=== PATIENT | male | born 1950 | race Caucasian/White ===

== ENCOUNTER 2021-11-10 13:41 | Emergency (ER) | payer OTHER, SELFPAY ==
[2021-11-10 13:42] VITALS: BP 139/77; PULSE 89; RESP 16; TEMP 37.2; O2SAT 100; BMI 26.4
--- NOTE | 2021-11-10 14:08 | EDS_ITS ---
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 He is right-hand dominant. No numbness, loss of function, or other injury. In triage, nurse was removing the packing and there was blood sprain from the wound so she put a tight wrap around it with gauze controlling the bleeding with this. Tetanus Immunization: >10 years [facility] Medical History (Updated 11/10/21 @ 14:[address] Derek Puente MD) CAD (coronary artery disease) Hypertension Home Medications aspirin 81 mg PO DAILY@0800 12/25/16 [History Last Taken Unknown] clopidogrel 75 mg PO DAILY 12/25/16 [History Last Taken Unknown] insulin aspart U-100 [Novolog Flexpen (BKC)] units SUBCUT 12/25/16 [History Last Taken Unknown] magnesium oxide 420 mg PO DAILY 12/25/16 [History Last Taken Unknown] metoprolol tartrate 25 mg PO BID 12/25/16 [History Last Taken Unknown] nitroglycerin 0.4 mg SUBLINGUAL Q5M PRN 12/25/16 [History Last Taken Unknown] prazosin [Minipress] 2 mg PO DAILY 12/25/16 [History Last Taken Unknown] prazosin [Minipress] 2 mg PO QHS 12/25/16 [History Last Taken Unknown] venlafaxine 75 mg PO TID 12/25/16 [History Last Taken Unknown] cephalexin 500 mg PO TID #15 capsule 11/10/21 [Rx Last Taken Unknown] Allergy/AdvReac Type Severity Reaction Status Date / Time No Known Allergies Allergy Verified 11/10/21 13:45 Social History Smoking Status: Never smoker ROS ROS ED Constitutional Constitutional ED: Denies chills or fever(s) Musculoskeletal Musculoskeletal: Reports extremity pain; Denies neck pain Integumentary Reports wounds; Denies Abrasions or rash Neurologic Neurologic: Denies paresthesias or weakness EXAM Physical Exam Const Vital Signs: 11/10/21 13:42 Temperature 98.9 F Temperature Source Temporal Pulse Rate 89 Respiratory Rate 16 Blood Pressure 139/77 H Blood Pressure Mean 97 Pulse Ox 100 Oxygen Delivery Method Room Air Positive well nourished and well developed General Appearance ED: well developed and NAD Neck full ROM and supple Back/Spine normal ROM and normal to inspection Extremity Extremity Narrative: Mild tenderness at area of soft tissue injury left dorsal forearm, full range of motion of the elbow, wrist, fingers, with all extensor tendon function intact clinically. Neuro oriented x3, no focal motor deficits and no sensory deficits noted Sensorium / Orientation: alert Psych mental status grossly normal and thought process normal Skin Skin Narrative: Irregular clean appearing wound dorsal left mid-distal forearm, mostly superficial skin tear but there is an area of laceration where the heavy bleeding was coming from but is only very mild when I remove the dressing and wrapping now; laceration approximately 4 cm and full-thickness. Within the skin tear more proximally in the forearm, there is a partial-thickness 0.5 centimeter laceration as well. Rashes: no rashes MDM MDM MDM Narrative Medical decision making narrative: We updated the patient's tetanus, cleansed the laceration/skin tear thoroughly, excising about 2 cm? of epidermis that was hanging off in the way of repairing the lacerations. See the procedure note. The most of it was skin tear, that will have to heal in with granulation. Discussed dressing with nonstick materials and ointment, I will place him on 5 days of prophylactic cephalexin since it was dirty in this area and the laceration penetrated deep into tissue. Procedures Lacerations left forearm - distal: Length: 4 cm Depth: Fascia Shape: Flap Prep: Sterile Conditions and Chlorhexadine Laceration repair: Irrigated, Lidocaine with epi (4cc, 1%) and Local Number of Sutures/Nina: 6 Suture Information: Ethilon, Simple and 4-0 left forearm - proximal: Length: 0.5 cm Depth: Skin Shape: Linear Prep: Sterile Conditions and Chlorhexadine Laceration repair: Lidocaine with epi (0.5cc, 1%) Number of Sutures/Nina: 1 Suture Information: Ethilon, Simple and 4-0 Discharge Plan Triage Chief Complaint: Laceration ED Provider: Derek Puente Dx/Rx/DC Orders Clinical Impression: Laceration of forearm, left, Skin tear of left forearm without complication, Immunization, tetanus-diphtheria Instructions: ED Laceration: All Closures, ED Skin Avulsion Prescriptions: New cephalexin [cephalexin] 500 MG capsule 500 mg PO TID Qty: 15 RF: 0 No Action venlafaxine 75 MG tablet 75 mg PO TID RF: 0 magnesium oxide 420 MG tablet 420 mg PO DAILY RF: 0 clopidogrel 75 MG tablet 75 mg PO DAILY RF: 0 aspirin 81 MG tablet 81 mg PO DAILY@0800 RF: 0 nitroglycerin 0.4 MG tablet 0.4 mg sublingual Q5M PRN (Reason: Chest Pain) RF: 0 prazosin [Minipress] 2 MG capsule 2 mg PO DAILY RF: 0 prazosin [Minipress] 2 MG capsule 2 mg PO QHS RF: 0 insulin aspart U-100 [Novolog Flexpen U-100 Insulin] 100 UNITS/ML insulin pen subcut RF: 0 metoprolol tartrate 25 MG tablet 25 mg PO BID RF: 0 Primary Care Provider: [facility] Referrals: Town Doctor,Out of [NON-STAFF] - 10-14 Days suture removal (or ER (or urgent care -- if you dare!)) Disposition Disposition: Home, Self Care
[2021-11-10] MEDS: Diphth,Pertuss(Acell),Tet Vac 0.5 ML Vial IM (14:19)
[2021-11-10] MEDS: Lidocaine 1% /Epi 1:100 (20ml) 20 ML Vial INFILT (14:20)
[2021-11-10] MEDS: Cephalexin 250 MG Capsule 500 MG PO (15:55)
== END 2021-11-10 16:12 | disposition home or self-care (01) ==
PROVIDERS: Emergency Provider Emergency Medicine; Visit Provider Emergency Medicine
DX: S51.812A Laceration without foreign body of left forearm, initial encounter (principal); I25.10 Atherosclerotic heart disease of native coronary artery without angina pectoris; I10 Essential (primary) hypertension; W26.8XXA Contact with other sharp object(s), not elsewhere classified, initial encounter; Y93.H9 Activity, other involving exterior property and land maintenance, building and construction; Y99.9 Unspecified external cause status; Y92.79 Other farm location as the place of occurrence of the external cause; Z79.899 Other long term (current) drug therapy; Z79.82 Long term (current) use of aspirin; Z79.02 Long term (current) use of antithrombotics/antiplatelets; Z23 Encounter for immunization
CPT/HCPCS: 12002; 90715; 99283

== ENCOUNTER → 2024-01-01 | Day surgery (SDC) | payer MEDICARE, SELFPAY ==
--- NOTE | 2024-01-01 13:30 | EKG12_ITS ---
Test Reason : PREOP Blood Pressure : / mmHG Vent. Rate : 085 BPM Atrial Rate : 085 BPM P-R Int : 136 ms QRS Dur : 142 ms QT Int : 412 ms P-R-T Axes : 069 102 072 degrees QTc Int : 490 ms Normal sinus rhythm Right bundle branch block Abnormal ECG Confirmed by MORGAN ALEX, MORGAN ([id number]), restaurant expeditor DEJA HASSAN ([id number]) on 01/02/2024 6:33:00 AM Referred By: Morales Chun Confirmed By:MORGAN MORA MD
[2024-01-01 14:58] LABS: Hematocrit 39.6 % (40-54); Hemoglobin 13.3 g/dL (13.0-16.5); Mean Corp Hgb Conc 33.6 g/dL (32-36); Mean Corpuscular Hgb 29.8 pg (27.0-32.0); Mean Corpuscular Volume 88.8 fL (80-94); Mean Platelet Vol. 10.8 fl (6.2-12.0); Platelet Count 201 K/mm3 (150-450); RBC Distribution Width CV 12.7 % (11.6-14.6); RBC Distribution Width SD 41.4 fl (35.1-43.9); Red Blood Count 4.46 M/mm3 (4.6-6.2); White Blood Count 7.7 K/mm3 (4.4-11.0)
[2024-01-01 15:23] LABS: Anion Gap 7 (5-15); BUN 16 mg/dL (7-18); BUN/Creat Ratio 14.4 RATIO (10-20); Calcium,Total 9.3 mg/dL (8.5-10.1); Chloride 110 mmol/L (98-107); Creatinine, Serum 1.11 mg/dL (0.70-1.30); EST Glomerular Filtration Rate 69 mL/min (>60); Est Glom Filt Rate - Afr Amer 83 mL/min (>60); Glucose 99 mg/dL (74-106); Potassium 3.7 mmol/L (3.5-5.1); Sodium Level 142 mmol/L (136-145)
[2024-01-01 15:32] LABS: Hemoglobin A1c 7.3 % (3.8-5.6)
== END | disposition home or self-care (01) ==
LOC: SDC 13:25
PROVIDERS: Anesthesiology; Referring Provider Urology; Visit Provider Urology
DX: Z01.818 Encounter for other preprocedural examination (principal); Z79.899 Other long term (current) drug therapy
CPT/HCPCS: 36415; 80048; 83036; 85027; 93005; J2405

== ENCOUNTER 2024-01-09 13:22 | Observation (INO) | payer MEDICARE, SELFPAY ==
[2024-01-09] VITALS (13 sets, daily range): BP systolic 141–173; BP diastolic 67–122; PULSE 55–67; RESP 13–18; TEMP 36.1–36.7; O2SAT 93–100; BMI 27.8
[2024-01-09] MEDS: Lactated Ringers 1,000 ML 15 ML IV ×2 (11:33→15:10)
[2024-01-09] MEDS: Dextrose 5%-Lactated Ringers 1,000 ML 15 ML IV (11:45)
--- NOTE | 2024-01-09 12:40 | PCM.PRE.AN2 ---
ASA Classification* ASA Classification ASA Classification: 3 Assessment & Plan Anesthesia* Anesthesia Assessment Anesthesia Assessment: Discussed sedation and/or anesthesia options, risks, benefits, and alternatives with patient/parents/legal guardian/POA. Questions invited. The patient/parents/legal guardian/POA seems to understand and agrees to proceed with anesthesia plan. Reviewed the physical assessment, medical history, allergy history and patient home medications list prior to surgery/procedure/anesthetic and documented any changes. Performed airway and anesthesia risk assessments. Anesthesia Type Anesthesia Type: General (Patient will have to be intubated with glide scope.) History Source History Obtained from:: Patient and Chart Anesthesia Focused Assessment* Temperature: 97.2 F Pulse Rate: 56 Blood Pressure: 141/73 Respiratory Rate: 16 Pulse Ox: 100 Oxygen Delivery Method: Room Air Airway Assessment Mouth opens: >3 cm Mallampati Score: IV Teeth Condition: Caps/Crowns (Several Crowns. All Tight) Neck Range of motion (ROM): Limited ROM (Significantly decreased extension) Pertinent Findings EKG Pertinent Findings:: January 01, 2024. Normal sinus rhythm. Right bundle branch block. ECHO Pertinent Findings:: March 21, 2023. Ejection fraction is 40 to 45%. Consults Pertinent Findings:: March 21, 2023. No acute cardiopulmonary processes. 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 When Was Last Pacemaker Check QUESTION #4 FULL TEXT: You/Your Family Experience fever (hyperthermia) with Anesthesia Last Oral Intake Last Oral intake: Last Oral Intake NPO since 22:00 01/09/24 11:23 Meds taken in AM with sips of water? Meds patient instructed to take am of surgery Any additional information?: Yes NPO since: 08:30 Meds patient instructed to take am of surgery: Black coffee at 8:30 AM. 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 Has anyone observed you stop No 12/31/23 08:51 breathing during sleep? STOP Results Positive 12/31/23 08:51 QUESTION #5 FULL TEXT : Do you snore loudly (louder than talking or can be heard through closed doors)? 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 Specify any problems Hx of Preganancy in last 3 N/A 12/31/23 08:51 Months Nurse Filling Out Transfusion DSCHRIBER 12/31/23 08:51 & Questions: Date: 12/31/23 12/31/23 08:51 Time: 08:52 12/31/23 08:51 Patient unable to answer at this time (ie. 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 driver Hx Now No 12/31/23 08:51 Gestational Age (in weeks): EDC: Hx Hx Para Hx Section SAB No 12/31/23 08:51 Active Medications Active Medications: Current Medications Generic Name Dose Route Start Last Admin Trade Name Freq PRN Reason Stop Dose Admin Dextrose/Lactated Ringer's 1,000 mls @ 15 mls/hr 01/09/24 11:45 01/09/24 11:45 IV 15 mls/hr .Q48H AMEYA Administration PFSH Medical History Loss of hearing Wears glasses PTSD (post-traumatic stress disorder) Depression Anxiety Alcohol use Insulin dependent diabetes mellitus Prostate disease Anemia Restless legs High cholesterol TIA (transient ischemic attack) Dietary restriction History of hiatal hernia Gastric reflux Former smoker Leg cramps History of echocardiogram History of stress test Cardiology follow-up encounter History of heart attack CAD (coronary artery disease) Hypertension Home Medications ?Medication ?Instructions ?Recorded ?Last Taken ?Type aspirin 81 mg tablet,delayed 81 mg PO DAILY@0800 12/25/16 12/31/23 History release magnesium oxide 420 mg tablet 420 mg PO QHS 12/25/16 01/08/24 History nitroglycerin 0.4 mg sublingual 0.4 mg sublingual Q5M PRN Chest 12/25/16 Unknown History tablet Pain prazosin 2 mg capsule (Minipress) 1 mg PO QHS 12/25/16 01/08/24 History alogliptin 25 mg tablet 25 mg PO DAILY 12/31/23 01/08/24 History atorvastatin 40 mg tablet 40 mg PO QHS 12/31/23 01/08/24 History cholecalciferol (vitamin D3) 50 50 mcg PO DAILY 12/31/23 01/08/24 History mcg (2,000 unit) capsule cyanocobalamin (vitamin B-12) 500 500 mcg PO DAILY 12/31/23 01/09/24 History mcg tablet finasteride 5 mg tablet 5 mg PO DAILY 12/31/23 01/09/24 History insulin glargine 100 unit/mL (3 54 unit subcut DAILY 12/31/23 01/08/24 History mL) subcutaneous pen (Basaglar KwikPen U-100 Insulin) metformin 1,000 mg tablet 1,000 mg PO BID 12/31/23 01/09/24 History metoprolol succinate 25 mg 12.5 mg PO QHS 12/31/23 01/08/24 History tablet,extended release 24 hr pantoprazole 20 mg tablet,delayed 20 mg PO DAILY 12/31/23 01/09/24 History release tamsulosin 0.4 mg capsule 0.4 mg PO QHS 12/31/23 01/08/24 History Allergy/AdvReac Type Severity Reaction Status Date / Time No Known Allergies Allergy Verified 01/09/24 11:19 Surgical History History of cardiac catheterization Hx of heart bypass surgery History of coronary artery stent placement History of adrenal surgery Social History Smoking Status: Former smoker Review of Systems (Anesthesia) ROS Narrative System reviewed and no additional complaints, except as documented.
[2024-01-09 13:02] LABS: Bedside Glucose 76 mg/dL (74-106)
--- NOTE | 2024-01-09 13:02 | PCM.HP.STD ---
HPI - General General Date of Service: 01/09/24 HPI Narrative BALBIR DIAZ, is a 73 M who presents for transurethral resection of the prostate for obstruction organ to proceed with a TURP. [facility] Medical History Loss of hearing Wears glasses PTSD (post-traumatic stress disorder) Depression Anxiety Alcohol use Insulin dependent diabetes mellitus Prostate disease Anemia Restless legs High cholesterol TIA (transient ischemic attack) Dietary restriction History of hiatal hernia Gastric reflux Former smoker Leg cramps History of echocardiogram History of stress test Cardiology follow-up encounter History of heart attack CAD (coronary artery disease) Hypertension Home Medications ?Medication ?Instructions ?Recorded ?Last Taken ?Type aspirin 81 mg tablet,delayed 81 mg PO DAILY@0800 12/25/16 12/31/23 History release magnesium oxide 420 mg tablet 420 mg PO QHS 12/25/16 01/08/24 History nitroglycerin 0.4 mg sublingual 0.4 mg sublingual Q5M PRN Chest 12/25/16 Unknown History tablet Pain prazosin 2 mg capsule (Minipress) 1 mg PO QHS 12/25/16 01/08/24 History alogliptin 25 mg tablet 25 mg PO DAILY 12/31/23 01/08/24 History atorvastatin 40 mg tablet 40 mg PO QHS 12/31/23 01/08/24 History cholecalciferol (vitamin D3) 50 50 mcg PO DAILY 12/31/23 01/08/24 History mcg (2,000 unit) capsule cyanocobalamin (vitamin B-12) 500 500 mcg PO DAILY 12/31/23 01/09/24 History mcg tablet finasteride 5 mg tablet 5 mg PO DAILY 12/31/23 01/09/24 History insulin glargine 100 unit/mL (3 54 unit subcut DAILY 12/31/23 01/08/24 History mL) subcutaneous pen (Basaglar PatiPen U-100 Insulin) metformin 1,000 mg tablet 1,000 mg PO BID 12/31/23 01/09/24 History metoprolol succinate 25 mg 12.5 mg PO QHS 12/31/23 01/08/24 History tablet,extended release 24 hr pantoprazole 20 mg tablet,delayed 20 mg PO DAILY 12/31/23 01/09/24 History release tamsulosin 0.4 mg capsule 0.4 mg PO QHS 12/31/23 01/08/24 History Allergy/AdvReac Type Severity Reaction Status Date / Time No Known Allergies Allergy Verified 01/09/24 11:19 Surgical History History of cardiac catheterization Hx of heart bypass surgery History of coronary artery stent placement History of adrenal surgery Social History Smoking Status: Former smoker Vital Signs Vital Signs Vital Signs: 01/09/24 11:23 01/09/24 12:48 Temperature 97.2 F L 97.2 F L Temperature Source Temporal Pulse Rate 56 L 56 L Respiratory Rate 16 16 Blood Pressure 141/73 H 141/73 H Blood Pressure Mean 95 Blood Pressure Source Monitor Blood Pressure Position Semi-Fowlers Blood Pressure Location Left Arm Pulse Ox 100 100 Oxygen Delivery Method Room Air Room Air Weight Weight: 93 kg Body Mass Index (BMI) 27.8 Results Lab / Micro Data Labs: Laboratory Results - last 24 hr 01/09/24 11:25: POC Glucose 76
--- NOTE | 2024-01-09 13:26 | DCINST_ITS ---
Discharge Instructions Diet Discharge Diet: No restrictions Activity Discharge Activity: Return to Normal Activity and May Not Drive (while taking narcotic pain medications.) Dressing / Incision Call your doctor if you observe: Fever of 101 or Higher Follow Up Care Please Follow Up With: Morales Chun MD When: Call [phone] for an appointment Test Results: Test results from this visit will be discussed in further detail at your follow- up appointment, if applicable. Discharge Plan Admission Primary Reason for Your Visit: RODERICK Attending Provider: Morales Chun Primary Care Provider: [facility] Instructions Patient Instructions: YVES, RODERICK Home Recovery, [facility] Hospital Recovery Print Language: Bengali Discharge Orders/Prescriptions Prescriptions: New ciprofloxacin HCl [Cipro] 500 mg tablet 500 mg PO BID Qty: 14 0RF Continued magnesium oxide 420 MG tablet 420 mg PO QHS nitroglycerin 0.4 MG tablet 0.4 mg sublingual Q5M PRN (Reason: Chest Pain) prazosin [Minipress] 2 MG capsule 1 mg PO QHS pantoprazole 20 mg tablet,delayed release (DR/EC) 20 mg PO DAILY cyanocobalamin (vitamin B-12) 500 mcg tablet 500 mcg PO DAILY alogliptin 25 mg tablet 25 mg PO DAILY cholecalciferol (vitamin D3) 50 mcg (2,000 unit) capsule 50 mcg PO DAILY metformin 1,000 mg tablet 1,000 mg PO BID metoprolol succinate 25 mg tablet extended release 24 hr 12.5 mg PO QHS atorvastatin 40 mg tablet 40 mg PO QHS insulin glargine [Basaglar KwikPen U-100 Insulin] 100 unit/mL (3 mL) insulin pen 54 unit subcut DAILY Discontinued aspirin 81 MG tablet 81 mg PO DAILY@0800 finasteride 5 mg tablet 5 mg PO DAILY tamsulosin 0.4 mg capsule 0.4 mg PO QHS Referrals / Follow Up: Morales Chun MD [Med Staff - Active Staff] - [facility] [Primary Care Provider] - Disposition Disposition (needs filled in before D/C Order can be placed): Home, Self Care
[2024-01-09] MEDS: Cefazolin 2 GM in 0.9% Normal Saline (100mL Bag) 100 ML IV (13:27)
--- NOTE | 2024-01-09 14:00 | PROS_PTH ---
PATIENT: BALBIR DIAZ LOC: [facility]3 U#:[id number] AGE/SX: 73/M ROOM: VT305 RE01/09/[address]: Dr. Morales Chun MD : 1950 BED: 1 DIS: 01/10/2024 SPEC #: [id number] RECD: 01/09/24 15:14 STATUS: LIZBETH MAYS #: [id number] KIM: 01/09/24 14:[address]: Morales Chun DEPT: SURGICAL PATHOLOGY RECD BY: Huy Procotr ENTERED: 01/10/24 07:14 SP TYPE: TURP LISBETH DR: [facility] Tissues: Prostate, NOS Procedures: Surgery Specimen Level IV HEADER OPERATION: Transurethral resection prostate with Olympus PRE-OP DIAGNOSIS: Obstruction prostate TISSUE SUBMITTED: Prostate chips MICROSCOPIC DIAGNOSIS Prostate chips, transurethral resection: Bening prostatic tissue predominantly consists of stromal tissue. Chronic inflammation. SJ/mr 01/11/2024 MICROSCOPIC DESCRIPTION Slides are reviewed. GROSS DESCRIPTION Received is one container labeled with the patient's name and designated prostate tissue. The specimen consists of multiple irregular fragments of pink-roberts, rubbery, soft tissue that in aggregate weigh <1.0 gm and measure in aggregate 2.5 x 0.5 x 0.2 cm. The entire specimen is submitted in one cassettes. / 01/10/2024 TC:5 CPT: 26597
--- NOTE | 2024-01-09 14:30 | OP.PCM_ITS ---
Report of Operation Date of Procedure: 01/09/24 Pre-Operative Diagnosis: bph w obstruction Post-Operative Diagnosis: same Surgery/Procedure Performed:: Transurethral section of prostate Description of Surgical Findings:: Patient was taken back to the operating room after smooth induction of anesthesia we went into the bladder with a 21 Romanian rigid cystourethroscope on inspection he had bilateral hypertrophy and a large obstructing median lobe so I switched over to the resectoscope and we used a button resectoscope. I then started doing the vaporization and transurethral resection of the prostate using the vaporization button Olympus for smooth out the median lobe I then smoothed out the right lobe of the prostate smooth out the left lobe of the prostate and then worked in the anterior tissue I then went down near the sphincter and got rid of all the flapping tissue and got a nice open channel we did a flow test and a wide open flow sphincter was intact and then at this point the tissue was sent off as a specimen we did a resection of the prostate with the vaporization looked good put a 22 Romanian catheter in the bladder and continuous irrigation patient's anesthetic was reversed and he is taken back to the PACU in good co ndition we will keep him overnight for irrigation. Surgeon: Morales Chun Type of Anesthesia: General Drains: [address] Estimated Blood Loss (mL): 5 Admit VTE Documentation VTE Present on Admission: No VTE Mechan Device Prophylaxis: SCD's VTE Pharm Prophylaxis ordered?: No
--- NOTE | 2024-01-09 14:42 | PCM.POST.ANE ---
Anesthesia: Postop Eval I Current Vital Signs Temperature: 97.4 F Pulse Rate: 60 Blood Pressure: 173/122 Respiratory Rate: 14 Pulse Ox: 97 Oxygen Delivery Method: Room Air Assessment Airway patent: Yes Spontaneous unlabored respirations: Yes Mental status: Awake nausea: No Vomiting: No Anesthesia Complication: No Fluid Hydration Crystalloid volume administer (ml): 1,000 Total IV fluid infused: 1,000 Progress Note Anesthesia document: Postop Eval 1 completed: Yes
--- NOTE | 2024-01-09 15:12 | POSTOPAN2_ITS ---
Anesthesia Postop Eval I Sum Postop Eval Completion status Anesthesia document: Postop Eval 1 completed: Yes Anesthesia Postop Eval I Summary Anesthesia Postop Eval I Summary: Anesthesia Postop Eval I: Assessment Summary Airway patent Yes 01/09/24 14:43 BILINGUAL MEDICAL [email or web address].[email or web address] Spontaneous unlabored Yes 01/09/24 14:43 BILINGUAL MEDICAL RECEPTIONIST.[email or web address] respirations Mental status Awake 01/09/24 14:43 BILINGUAL MEDICAL RECEPTIONIST.[email or web address] nausea No 01/09/24 14:43 BILINGUAL MEDICAL RECEPTIONIST.[email or web address] Vomiting No 01/09/24 14:43 BILINGUAL MEDICAL RECEPTIONIST.[email or web address] Anesthesia Postop Eval I: Fluid Summary Crystalloid volume administer 1,000 01/09/24 14:43 BILINGUAL MEDICAL RECEPTIONIST.[email or web address] (ml) Colloids volume administered ( ml) Blood Product volume administered (ml) Total IV fluid infused 1,000 01/09/24 14:43 BILINGUAL MEDICAL RECEPTIONIST.[email or web address] Anesthesia Postop Eval I: Summary Notes Anesthesia Complication No 01/09/24 14:43 BILINGUAL MEDICAL RECEPTIONIST.[email or web address] Anesthesia Complication Comment: Post-operative progress note Anesthesia: Postop Eval II Evaluation Mental status: Awake and Calm Pain Level: 1 nausea: No Vomiting: No Complications Anesthesia Complication: No
--- NOTE | 2024-01-09 15:12 | PCM.POSTANE2 ---
Anesthesia Postop Eval I Sum Postop Eval Completion status Anesthesia document: Postop Eval 1 completed: Yes Anesthesia Postop Eval I Summary Anesthesia Postop Eval I Summary: Anesthesia Postop Eval I: Assessment Summary Airway patent Yes 01/09/24 14:43 [employer] MANAGER ARCHITECT.[email or web address] Spontaneous unlabored Yes 01/09/24 14:43 [employer] MANAGER ARCHITECT.[email or web address] respirations Mental status Awake 01/09/24 14:43 [employer] D[employer] MANAGER ARCHITECT.[email or web address] nausea No 01/09/24 14:43 [employer] DYNAM[employer] MANAGER ARCHITECT.JBLOU Vomiting No 01/09/24 14:43 [employer]OS[employer] DYNAMICS MANAGER ARCHITECT.[email or web address] Anesthesia Postop Eval I: Fluid Summary Crystalloid volume administer 1,000 01/09/24 14:43 [employer] DYNAM[employer] MANAGER ARCHITECT.JBLOU (ml) Colloids volume administered ( ml) Blood Product volume administered (ml) Total IV fluid infused 1,000 01/09/24 14:43 [employer]OS[employer] DYNAMICS MANAGER ARCHITECT.JBLOU Anesthesia Postop Eval I: Summary Notes Anesthesia Complication No 01/09/24 14:43 [employer] DYNAM[employer] MANAGER ARCHITECT.JBLOU Anesthesia Complication Comment: Post-operative progress note Anesthesia: Postop Eval II Evaluation Mental status: Awake and Calm Pain Level: 1 nausea: No Vomiting: No Complications Anesthesia Complication: No
[2024-01-09] MEDS: Ketorolac 15 MG/ML Vial IV (15:13)
[2024-01-09] MEDS: metFORMIN HCl 1,000 MG Tablet 1000 MG PO (16:14)
[2024-01-09 16:44] LABS: Bedside Glucose 129 mg/dL (74-106)
[2024-01-09] MEDS: 0.9% Normal Saline (1000mL) 1,000 ML 125 ML IV (20:50)
[2024-01-09] MEDS: Ciprofloxacin 400 MG/200 ML BAG 200 MG IV (20:50)
[2024-01-09] MEDS: Metoprolol(XL)Succ 25 MG Tablet 12.5 MG PO (20:51)
[2024-01-09] MEDS: Docusate Sodium 100 MG Capsule 200 MG PO (20:51)
[2024-01-09] MEDS: Atorvastatin Calcium 40 MG Tablet PO (20:52)
[2024-01-09] MEDS: Magnesium Chloride 64 MG Delay Rel.Tablet 128 MG PO (20:52)
[2024-01-10 01:28] VITALS: PULSE 80; RESP 16; O2SAT 97
[2024-01-10 04:40] VITALS: BP 138/60; PULSE 70; RESP 16; TEMP 36.7; O2SAT 97
[2024-01-10] MEDS: 0.9% Normal Saline (1000mL) 1,000 ML 125 ML IV (04:45)
[2024-01-10 05:55] LABS: Bedside Glucose 167 mg/dL (74-106)
--- NOTE | 2024-01-10 07:24 | PCM.PN.GU ---
Subjective Subjective Status post transurethral resection of the prostate doing well urine is clear DC [place] and he can go home after he voids. Objective Data Objective Data Vital Signs: Vital Signs Temp Pulse Resp BP Pulse Ox O2 Del Method 98.1 F 70 16 138/60 H 97 Room Air 01/10/24 04:40 01/10/24 04:40 01/10/24 04:40 01/10/24 04:40 01/10/24 04:40 01/10/24 04:40 Oxygen Delivery Method Room Air Weight: 93 kg Body Mass Index (BMI) 27.8 Intake & Output: Intake and Output for Last 24 Hours 01/08/24 01/09/24 01/10/24 23:59 23:59 23:59 Intake Total 910 / 910 1129.58 / 1129.58 Output Total 2750 / 2750 Balance -1840 / -1840 1129.58 / 1129.58 Lab / Micro Data Labs: Laboratory Results - last 24 hr 01/09/24 11:25: POC Glucose 76 01/09/24 15:02: POC Glucose 167 H 01/09/24 16:11: POC Glucose 129 H
[2024-01-10 07:25] VITALS: BP 144/68; PULSE 60; RESP 16; TEMP 36.9; O2SAT 98
--- NOTE | 2024-01-10 07:37 | NURSING ---
0430 Patient did not want to get out of bed at this time. This RN said I will try to make it back to his room in a couple hours to try again.
[2024-01-10] MEDS: Ciprofloxacin 400 MG/200 ML BAG 200 MG IV (08:06)
[2024-01-10] MEDS: Docusate Sodium 100 MG Capsule 200 MG PO (08:10)
[2024-01-10] MEDS: metFORMIN HCl 1,000 MG Tablet 1000 MG PO (08:10)
[2024-01-10] MEDS: LINAGLIPTIN 5 MG TABLET PO (08:11)
[2024-01-10] MEDS: Pantoprazole Sodium 20 MG Tablet PO (08:11)
--- NOTE | 2024-01-10 08:13 | NURSING ---
Assisted to edge of bed. Dangled feet for 1 min and then walked to the window. Stood at window for 5 min watching construction. Then assisted to chair. Eating breakfast while in chair. Personal Chair alarm on. Lan taken out. Pt is aware he has to call for assistance when gettingup. showed how to call using call light.
[2024-01-10 08:15] VITALS: BP 131/63; PULSE 60; RESP 18; TEMP 36.8; O2SAT 98
--- NOTE | 2024-01-10 09:00 | CASEMGMT ---
Pt has an order for DC. This RN CM to the pt room at this time. Pt states that he is independent and lives with his . Pt states that they are both retired and can help each other out at home if needed. Pt states that his will drive him home from the hospital today. Pt denies the need for HHC or OP Tx needs. Pt denies further questions or concerns and is ready for DC home today.
--- NOTE | 2024-01-10 09:47 | PHA.DC.MC.R ---
Pharmacy [facility] has performed discharge medication reconciliation and counseling for this patient. The patient's discharge medication list was reviewed for discrepancies and discrepancies were resolved. The patient was counseled on the following discharge medications and changes in medications for homegoing were reviewed. 1. CIPRO The Reason for Use, instructions for use, and potential side effects were reviewed for all new medications. The patient's questions regarding all of their medications were answered. The patient was able to verbally demonstrate an understanding of their discharge medications. The patient was counselled by Hugo Nino PharmD Candidate Medications at Discharge Home Medications magnesium oxide 420 mg tablet 420 mg PO QHS 12/25/16 nitroglycerin 0.4 mg sublingual tablet 0.4 mg sublingual Q5M PRN Chest Pain 12/25/16 prazosin 2 mg capsule (Minipress) 1 mg PO QHS 12/25/16 alogliptin 25 mg tablet 25 mg PO DAILY 12/31/23 atorvastatin 40 mg tablet 40 mg PO QHS 12/31/23 cholecalciferol (vitamin D3) 50 mcg (2,000 unit) capsule 50 mcg PO DAILY 12/31/23 cyanocobalamin (vitamin B-12) 500 mcg tablet 500 mcg PO DAILY 12/31/23 insulin glargine 100 unit/mL (3 mL) subcutaneous pen (Basaglar KwikPen U-100 Insulin) 54 unit subcut DAILY 12/31/23 metformin 1,000 mg tablet 1,000 mg PO BID 12/31/23 metoprolol succinate 25 mg tablet,extended release 24 hr 12.5 mg PO QHS 12/31/23 pantoprazole 20 mg tablet,delayed release 20 mg PO DAILY 12/31/23 ciprofloxacin HCl 500 mg tablet (Cipro) 500 mg PO BID #14 tabs 01/09/24
[2024-01-10] MEDS: Insulin Glargine-YFGN 100 UNIT/ML Pen 54 UNIT SC (10:09)
[2024-01-10 10:34] LABS: Bedside Glucose 295 mg/dL (74-106)
--- NOTE | 2024-01-10 11:48 | CASEMGMT ---
Social Work Pt confirms he has completed a living will and health care POA naming , Anitra.? Pt notified that documents are not on file at [facility] and SW requested they be brought in for scanning into the EMR.? MIKE Knox
--- NOTE | 2024-01-10 12:03 | NURSING ---
While this RN was going over discharge instructions, I noticed that with the Aspirin, was told to stop but no resume date. This RN called Dr. Chun to inform him of this. Dr. Chun not to resume it until after he follows up with him in his office. Mr. Mills has a follow up appointment already but not sure when as the appointment card is at home. Mr. Mills and his both aware not to resume the ASA until after his follow up.
== END 2024-01-10 12:23 | disposition home or self-care (01) ==
LOC: SDC 14:52 → MS3 15:08
PROVIDERS: Admitting Provider Urology; Referring Provider Urology; Visit Provider Urology
PROC: 0VT08ZZ Resection of Prostate, Via Natural or Artificial Opening Endoscopic (ICD-10-PCS; CPT 52601; principal; 2024-01-09 13:50)
DX: N40.1 Benign prostatic hyperplasia with lower urinary tract symptoms (principal); E11.9 Type 2 diabetes mellitus without complications; Z79.4 Long term (current) use of insulin; E78.00 Pure hypercholesterolemia, unspecified; Z79.84 Long term (current) use of oral hypoglycemic drugs; I10 Essential (primary) hypertension; I25.10 Atherosclerotic heart disease of native coronary artery without angina pectoris; Z87.891 Personal history of nicotine dependence; N13.8 Other obstructive and reflux uropathy; Z79.82 Long term (current) use of aspirin; Z79.899 Other long term (current) drug therapy; K21.9 Gastro-esophageal reflux disease without esophagitis
CPT/HCPCS: 52601; 00914; 82962; 88305; 96361; 96365; 96366; 96375; 99221; J7030; J7120; G0378; J0744

== ENCOUNTER → 2024-02-19 | Outpatient (CLI) | payer MEDICARE, SELFPAY | END | disposition home or self-care (01) | LOC: LABSPEC 16:19 | PROVIDERS: Referring Provider Urology; Visit Provider Urology | DX: R30.0 Dysuria (principal) | CPT/HCPCS: 87086 ==

== ENCOUNTER → 2024-03-10 | Outpatient (CLI) | payer MEDICARE, SELFPAY | END | disposition home or self-care (01) | LOC: LABSPEC 16:39 | PROVIDERS: Referring Provider Urology; Visit Provider Urology | DX: N39.0 Urinary tract infection, site not specified (principal) | CPT/HCPCS: 87086 ==

== ENCOUNTER 2024-03-21 06:01 | Day surgery (SDC) | payer MEDICARE, SELFPAY ==
[2024-03-21] VITALS (11 sets, daily range): BP systolic 116–179; BP diastolic 58–96; PULSE 57–73; RESP 14–18; TEMP 36.1–36.6; O2SAT 93–100; BMI 27.8
--- NOTE | 2024-03-21 07:02 | PCM.PRE.AN2 ---
ASA Classification* ASA Classification ASA Classification: 2 Assessment & Plan Anesthesia* Anesthesia Assessment Anesthesia Assessment: Discussed sedation and/or anesthesia options, risks, benefits, and alternatives with patient/parents/legal guardian/POA. Questions invited. The patient/parents/legal guardian/POA seems to understand and agrees to proceed with anesthesia plan. Reviewed the physical assessment, medical history, allergy history and patient home medications list prior to surgery/procedure/anesthetic and documented any changes. Performed airway and anesthesia risk assessments. Anesthesia Type Anesthesia Type: MAC (see written pre anesthesia record for full assessment) Anesthesia Focused Assessment* Temperature: 97.9 F Pulse Rate: 69 Blood Pressure: 179/96 Respiratory Rate: 16 Pulse Ox: 100 Airway Assessment Mouth opens: >3 cm Mallampati Score: II Focused Labs Anesthesia Preop lab: CBC WBC 7.7 K/mm3 (4.4-11.0) 01/01/24 13:41 RBC 4.46 M/mm3 (4.6-6.2) L 01/01/24 13:41 Hgb 13.3 g/dL (13.0-16.5) 01/01/24 13:41 Hct 39.6 % (40-54) L 01/01/24 13:41 Plt Count 201 K/mm3 (150-450) 01/01/24 13:41 CHEMISTRY Potassium 3.7 mmol/L (3.5-5.1) 01/01/24 13:41 Sodium 142 mmol/L (136-145) 01/01/24 13:41 BUN 16 mg/dL (7-18) 01/01/24 13:41 Creatinine 1.11 mg/dL (0.70-1.30) 01/01/24 13:41 Glucose 99 mg/dL (74-106) 01/01/24 13:41 POC Glucose 295 mg/dL (74-106) H 01/10/24 10:08 COAG Pre-Assessment Diagnosis/Proposed Procedure Planned Operative Procedure(s): egd Anesthesia History 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 When Was Last Pacemaker Check QUESTION #4 FULL TEXT: You/Your Family Experience fever (hyperthermia) with Anesthesia Last Oral Intake Last Oral intake: Last Oral Intake NPO since 05:00 03/21/24 06:42 Meds taken in AM with sips of Yes 03/21/24 06:42 water? Meds patient instructed to took 4 sugar pills at 0500 03/21/24 06:42 take am of surgery took full dose of insulin PONV PONV - life insurance sales agent: PONV - life insurance sales agent Female No 02/28/24 11:17 HX of Motion Sickness No 02/28/24 11:17 HX of N/V After Surgery No 02/28/24 11:17 Non-Smoker Yes 02/28/24 11:17 Duration of Surgery greater Yes 02/28/24 11:17 than 60 minutes Number of Risk Factors 2 02/28/24 11:17 PONV Score Moderate Risk 02/28/24 11:17 Height & Weight Height & Weight: Anesthesia: Height & Weight Height 6 ft 03/21/24 06:42 Weight: 93 kg 03/21/24 06:42 Body Mass Index (BMI) 27.8 03/21/24 06:42 Respiratory Assessment Respiratory Assessment - life insurance sales agent: Respiratory Tract Infection Hx - life insurance sales agent Hx Respiratory Tract Infection No 02/28/24 11:17 STOP Sleep Apnea STOP Sleep Apnea - life insurance sales agent: STOP Sleep Apnea - life insurance sales agent Hx Hypertension Yes: CONTROLLED WITH MEDS 02/28/24 11:17 Hx Sleep Apnea No 02/28/24 11:17 CPAP BIPAP Do you snore loudly (louder Yes 02/28/24 11:17 than talking or can be heard Do you often feel tired/ Yes 02/28/24 11:17 fatigued/ sleepy during daytime? Has anyone observed you stop No 02/28/24 11:17 breathing during sleep? STOP Results Positive 02/28/24 11:17 QUESTION #5 FULL TEXT : Do you snore loudly (louder than talking or can be heard through closed doors)? 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 Specify any problems Hx of Preganancy in last 3 N/A 02/28/24 11:17 Months Nurse Filling Out Transfusion DSCHRIBER 02/28/24 11:17 & Questions: Date: 02/28/24 02/28/24 11:17 Time: 11:19 02/28/24 11:17 Patient unable to answer at this time (ie. confused, unrespo /Reproduction History /Reproductive History - life insurance sales agent: /Reproductive Hx- life insurance sales agent Hx Now Gestational Age (in weeks): EDC: Hx Hx Para Hx Section SAB No 02/28/24 11:17 Active Medications Active Medications: Current Medications Generic Name Dose Route Start Last Admin Trade Name Freq PRN Reason Stop Dose Admin Cefazolin Sodium 2 gm/ Sodium 110 mls @ 150 mls/hr 03/21/24 07:30 Chloride IV 03/21/24 08:13 PREOP ONE Lactated Ringer's 1,000 mls @ 15 mls/hr 03/21/24 06:30 IV .Q48H AMEYA PFSH Medical History Loss of hearing Wears glasses PTSD (post-traumatic stress disorder) Depression Anxiety Alcohol use Insulin dependent diabetes mellitus Prostate disease Anemia Restless legs High cholesterol TIA (transient ischemic attack) Dietary restriction History of hiatal hernia Gastric reflux Former smoker Leg cramps History of echocardiogram History of stress test Cardiology follow-up encounter History of heart attack CAD (coronary artery disease) Hypertension Home Medications ?Medication ?Instructions ?Recorded ?Last Taken ?Type magnesium oxide 420 mg tablet 420 mg PO QHS 12/25/16 01/08/24 History nitroglycerin 0.4 mg sublingual 0.4 mg sublingual Q5M PRN Chest 12/25/16 Unknown History tablet Pain prazosin 2 mg capsule (Minipress) 1 mg PO QHS 12/25/16 01/08/24 History alogliptin 25 mg tablet 25 mg PO DAILY 12/31/23 01/08/24 History atorvastatin 40 mg tablet 40 mg PO QHS 12/31/23 01/08/24 History cholecalciferol (vitamin D3) 50 50 mcg PO DAILY 12/31/23 01/08/24 History mcg (2,000 unit) capsule cyanocobalamin (vitamin B-12) 500 500 mcg PO DAILY 12/31/23 01/09/24 History mcg tablet insulin glargine 100 unit/mL (3 54 unit subcut DAILY 12/31/23 03/21/24 History mL) subcutaneous pen (Basaglar KwikPen U-100 Insulin) metformin 1,000 mg tablet 1,000 mg PO BID 12/31/23 01/09/24 History metoprolol succinate 25 mg 12.5 mg PO QHS 12/31/23 03/20/24 History tablet,extended release 24 hr pantoprazole 20 mg tablet,delayed 20 mg PO DAILY 12/31/23 01/09/24 History release erythromycin 5 mg/gram (0.5 %) eye 1 applic ophthalmic (eye) DAILY 02/27/24 Unknown Rx ointment #3.5 grams silver sulfadiazine 1 % topical 1 applic topical DAILY #20 grams 02/27/24 Unknown Rx cream (Silvadene) Allergy/AdvReac Type Severity Reaction Status Date / Time No Known Allergies Allergy Verified 02/28/24 11:14 Family History Daughter Anxiety Father Heart disease Hypertension CVA (cerebral vascular accident) Surgical History Hx of transurethral resection of prostate History of cardiac catheterization Hx of heart bypass surgery History of coronary artery stent placement History of adrenal surgery Social History Smoking Status: Former smoker how long ago did patient quit smoking: quit 40 years ago alcohol intake: current details: rarely substance use type: does not use additional social history: pt denies vaping, denies marijuana use, denies edibles takes baby aspirin daily, takes ibuprofen as needed Review of Systems (Anesthesia) ROS Narrative System reviewed and no additional complaints, except as documented.
[2024-03-21 07:05] LABS: Bedside Glucose 76 mg/dL (74-106)
--- NOTE | 2024-03-21 07:09 | PCM.PRE.AN2 ---
ASA Classification* ASA Classification ASA Classification: 3 Assessment & Plan Anesthesia* Anesthesia Assessment Anesthesia Assessment: Discussed sedation and/or anesthesia options, risks, benefits, and alternatives with patient/parents/legal guardian/POA. Questions invited. The patient/parents/legal guardian/POA seems to understand and agrees to proceed with anesthesia plan. Reviewed the physical assessment, medical history, allergy history and patient home medications list prior to surgery/procedure/anesthetic and documented any changes. Performed airway and anesthesia risk assessments. Anesthesia Type Anesthesia Type: General (see written pre anesthesia record for full assessment) Anesthesia Focused Assessment* Temperature: 97.9 F Pulse Rate: 69 Blood Pressure: 179/96 Respiratory Rate: 16 Pulse Ox: 100 Airway Assessment Mouth opens: >3 cm Mallampati Score: II Focused Labs Anesthesia Preop lab: CBC WBC 7.7 K/mm3 (4.4-11.0) 01/01/24 13:41 RBC 4.46 M/mm3 (4.6-6.2) L 01/01/24 13:41 Hgb 13.3 g/dL (13.0-16.5) 01/01/24 13:41 Hct 39.6 % (40-54) L 01/01/24 13:41 Plt Count 201 K/mm3 (150-450) 01/01/24 13:41 CHEMISTRY Potassium 3.7 mmol/L (3.5-5.1) 01/01/24 13:41 Sodium 142 mmol/L (136-145) 01/01/24 13:41 BUN 16 mg/dL (7-18) 01/01/24 13:41 Creatinine 1.11 mg/dL (0.70-1.30) 01/01/24 13:41 Glucose 99 mg/dL (74-106) 01/01/24 13:41 POC Glucose 76 mg/dL (74-106) 03/21/24 06:32 COAG Pre-Assessment Diagnosis/Proposed Procedure Planned Operative Procedure(s): egd Anesthesia History Anesthesia 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 When Was Last Pacemaker Check QUESTION #4 FULL TEXT: You/Your Family Experience fever (hyperthermia) with Anesthesia Last Oral Intake Last Oral intake: Last Oral Intake NPO since 05:00 03/21/24 06:42 Meds taken in AM with sips of Yes 03/21/24 06:42 water? Meds patient instructed to took 4 sugar pills at 0500 03/21/24 06:42 take am of surgery took full dose of insulin PONV PONV - senior financial consultant: PONV - senior financial consultant Female No 02/28/24 11:17 HX of Motion Sickness No 02/28/24 11:17 HX of N/V After Surgery No 02/28/24 11:17 Non-Smoker Yes 02/28/24 11:17 Duration of Surgery greater Yes 02/28/24 11:17 than 60 minutes Number of Risk Factors 2 02/28/24 11:17 PONV Score Moderate Risk 02/28/24 11:17 Height & Weight Height & Weight: Anesthesia: Height & Weight Height 6 ft 03/21/24 06:42 Weight: 93 kg 03/21/24 06:42 Body Mass Index (BMI) 27.8 03/21/24 06:42 Respiratory Assessment Respiratory Assessment - senior financial consultant: Respiratory Tract Infection Hx - senior financial consultant Hx Respiratory Tract Infection No 02/28/24 11:17 STOP Sleep Apnea STOP Sleep Apnea - senior financial consultant: STOP Sleep Apnea - senior financial consultant Hx Hypertension Yes: CONTROLLED WITH MEDS 02/28/24 11:17 Hx Sleep Apnea No 02/28/24 11:17 CPAP BIPAP Do you snore loudly (louder Yes 02/28/24 11:17 than talking or can be heard Do you often feel tired/ Yes 02/28/24 11:17 fatigued/ sleepy during daytime? Has anyone observed you stop No 02/28/24 11:17 breathing during sleep? STOP Results Positive 02/28/24 11:17 QUESTION #5 FULL TEXT : Do you snore loudly (louder than talking or can be heard through closed doors)? 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 Specify any problems Hx of Preganancy in last 3 N/A 02/28/24 11:17 Months Nurse Filling Out Transfusion DSCHRIBER 02/28/24 11:17 & Questions: Date: 02/28/24 02/28/24 11:17 Time: 11:19 02/28/24 11:17 Patient unable to answer at this time (ie. confused, unrespo /Reproduction History /Reproductive History - senior financial consultant: /Reproductive Hx- senior financial consultant Hx Now Gestational Age (in weeks): EDC: Hx Hx Para Hx Section SAB No 02/28/24 11:17 Active Medications Active Medications: Current Medications Generic Name Dose Route Start Last Admin Trade Name Freq PRN Reason Stop Dose Admin Cefazolin Sodium 2 gm/ Sodium 110 mls @ 150 mls/hr 03/21/24 07:30 Chloride IV 03/21/24 08:13 PREOP ONE Lactated Ringer's 1,000 mls @ 15 mls/hr 03/21/24 06:30 IV .Q48H AMEYA Dextrose/Lactated Ringer's 1,000 mls @ 15 mls/hr 03/21/24 07:00 IV .Q48H AMEYA PFSH Medical History Loss of hearing Wears glasses PTSD (post-traumatic stress disorder) Depression Anxiety Alcohol use Insulin dependent diabetes mellitus Prostate disease Anemia Restless legs High cholesterol TIA (transient ischemic attack) Dietary restriction History of hiatal hernia Gastric reflux Former smoker Leg cramps History of echocardiogram History of stress test Cardiology follow-up encounter History of heart attack CAD (coronary artery disease) Hypertension Home Medications ?Medication ?Instructions ?Recorded ?Last Taken ?Type magnesium oxide 420 mg tablet 420 mg PO QHS 12/25/16 01/08/24 History nitroglycerin 0.4 mg sublingual 0.4 mg sublingual Q5M PRN Chest 12/25/16 Unknown History tablet Pain prazosin 2 mg capsule (Minipress) 1 mg PO QHS 12/25/16 01/08/24 History alogliptin 25 mg tablet 25 mg PO DAILY 12/31/23 01/08/24 History atorvastatin 40 mg tablet 40 mg PO QHS 12/31/23 01/08/24 History cholecalciferol (vitamin D3) 50 50 mcg PO DAILY 12/31/23 01/08/24 History mcg (2,000 unit) capsule cyanocobalamin (vitamin B-12) 500 500 mcg PO DAILY 12/31/23 01/09/24 History mcg tablet insulin glargine 100 unit/mL (3 54 unit subcut DAILY 12/31/23 03/21/24 History mL) subcutaneous pen (Basaglar KwikPen U-100 Insulin) metformin 1,000 mg tablet 1,000 mg PO BID 12/31/23 01/09/24 History metoprolol succinate 25 mg 12.5 mg PO QHS 12/31/23 03/20/24 History tablet,extended release 24 hr pantoprazole 20 mg tablet,delayed 20 mg PO DAILY 12/31/23 01/09/24 History release erythromycin 5 mg/gram (0.5 %) eye 1 applic ophthalmic (eye) DAILY 02/27/24 Unknown Rx ointment #3.5 grams silver sulfadiazine 1 % topical 1 applic topical DAILY #20 grams 02/27/24 Unknown Rx cream (Silvadene) Allergy/AdvReac Type Severity Reaction Status Date / Time No Known Allergies Allergy Verified 02/28/24 11:14 Family History Daughter Anxiety Father Heart disease Hypertension CVA (cerebral vascular accident) Surgical History Hx of transurethral resection of prostate History of cardiac catheterization Hx of heart bypass surgery History of coronary artery stent placement History of adrenal surgery Social History Smoking Status: Former smoker how long ago did patient quit smoking: quit 40 years ago alcohol intake: current details: rarely substance use type: does not use additional social history: pt denies vaping, denies marijuana use, denies edibles takes baby aspirin daily, takes ibuprofen as needed Review of Systems (Anesthesia) ROS Narrative System reviewed and no additional complaints, except as documented.
[2024-03-21] MEDS: Dextrose 5%-Lactated Ringers 1,000 ML 15 ML IV (07:19)
--- NOTE | 2024-03-21 07:21 | PCM.HP.BLA ---
History and Physical Date of Admission: 03/21/24 The patient is examined and there are no changes to the H&P of 03/06/24. Pt for bilateral upper blepharoplasty. Informed consent obtained. Assessment & Plan Assessment/Plan (1) Dermatochalasis of upper and lower eyelids of both eyes: (2) Visual field defect: PLAN: Plan for bilateral upper blepharoplasty
[2024-03-21] MEDS: Cefazolin 2 GM in 0.9% Normal Saline (100mL Bag) 100 ML IV (07:29)
[2024-03-21] MEDS: Povidone Iodine 30 ML Opthalmic Sol 1 DRP (07:48)
[2024-03-21] MEDS: Tetracaine 0.5% Ophthalmic Bottle 1 DRP (07:50)
[2024-03-21] MEDS: Erythromycin Base 1 OPTH.TUBE 1 APPLIC (07:52)
[2024-03-21] MEDS: Lidocaine 1% /Epi 1:100 (20ml) 20 ML Vial (07:53)
[2024-03-21] MEDS: EPINEPHrine Nasal 0.1% 30 ML Bottle OPERA.SITE (07:53)
[2024-03-21 08:33] LABS: Bedside Glucose 257 mg/dL (74-106)
--- NOTE | 2024-03-21 08:58 | DCINST_ITS ---
Discharge Instructions Dressing / Incision Additional Dressing/Incision Instructions:: Keep your head elevated (recliner position) to help reduce swelling and bruising. Follow the instructions given in the office. Follow Up Care Please Follow Up With: Jyoti Cardenas MD When: 1 to 2 weeks Test Results: Test results from this visit will be discussed in further detail at your follow- up appointment, if applicable. Discharge Plan Admission Attending Provider: Jyoti Cardenas Primary Care Provider: [facility],[place] Instructions Print Language: Slovenian Discharge Orders/Prescriptions Prescriptions: No Action erythromycin 5 mg/gram (0.5 %) ointment 1 applic ophthalmic (eye) DAILY Qty: 3.5 0RF Rx Instructions: Apply to incisions 1 x per day and in the eyes at nighttime. silver sulfadiazine [Silvadene] 1 % cream 1 applic topical DAILY Qty: 20 0RF Rx Instructions: apply a thin layer to the arm wound 1 x a day magnesium oxide 420 MG tablet 420 mg PO QHS nitroglycerin 0.4 MG tablet 0.4 mg sublingual Q5M PRN (Reason: Chest Pain) prazosin [Minipress] 2 MG capsule 1 mg PO QHS pantoprazole 20 mg tablet,delayed release (DR/EC) 20 mg PO DAILY cyanocobalamin (vitamin B-12) 500 mcg tablet 500 mcg PO DAILY alogliptin 25 mg tablet 25 mg PO DAILY cholecalciferol (vitamin D3) 50 mcg (2,000 unit) capsule 50 mcg PO DAILY metformin 1,000 mg tablet 1,000 mg PO BID metoprolol succinate 25 mg tablet extended release 24 hr 12.5 mg PO QHS atorvastatin 40 mg tablet 40 mg PO QHS insulin glargine [Basaglar KwikPen U-100 Insulin] 100 unit/mL (3 mL) insulin pen 54 unit subcut DAILY Referrals / Follow Up: [place] [Primary Care Provider] - Disposition Disposition (needs filled in before D/C Order can be placed): Home, Self Care
--- NOTE | 2024-03-21 09:00 | PCM.OPRPT ---
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 He is marked in the preop holding area prior to surgery. Informed consent is obtained. The patient is brought to the operating room and placed under general anesthesia in the supine position. Care is taken to pad all pressure points, apply sequential compression stockings, and a warming blanket prior to the surgery. Tetracaine drops were placed in the eye along with lubricated corneal godinez. He is prepped and draped in the usual sterile fashion. Initially began with incising the previously marked incisions. Following this, the demarcated skin is excised as a single layer. Hemostasis is controlled with bipolar cautery. A strip of orbicularis oculi is removed within the excision site. Again meticulous hemostasis is obtained with bipolar cautery. The incision is then tacked together with a fast-absorbing gut suture and cool compresses are placed on the eye while we directed our attention to performing the identical procedure on the opposite side. Following this, a 5-0 Prolene sutures used to approximate skin edges in a subcuticular fashion. The suture is anchored at the baptist and glabella with Mastisol and Steri-Strips. The corneal godinez are removed. Cool compresses are placed on the eye. He tolerated the procedure well was taken to the recovery area in an awake and stable condition. Needle and sponge counts are correct. Complications None Admit VTE Documentation VTE Mechan Device Prophylaxis: SCD's
--- NOTE | 2024-03-21 09:05 | PCM.POST.ANE ---
Anesthesia: Postop Eval I Current Vital Signs Temperature: 97 F Pulse Rate: 70 Blood Pressure: 125/58 Respiratory Rate: 16 Pulse Ox: 99 Oxygen Delivery Method: Room Air Assessment Airway patent: Yes Spontaneous unlabored respirations: Yes Mental status: Awake and Calm nausea: No Vomiting: No Anesthesia Complication: No Fluid Hydration Crystalloid volume administer (ml): 1,000 Total IV fluid infused: 1,000 Progress Note Anesthesia document: Postop Eval 1 completed: Yes
--- NOTE | 2024-03-21 09:13 | PCM.POSTANE2 ---
Anesthesia Postop Eval I Sum Postop Eval Completion status Anesthesia document: Postop Eval 1 completed: Yes Anesthesia Postop Eval I Summary Anesthesia Postop Eval I Summary: Anesthesia Postop Eval I: Assessment Summary Airway patent Yes 03/21/24 09:06 MALIHA Spontaneous unlabored Yes 03/21/24 09:06 MALIHA respirations Mental status Awake,Calm 03/21/24 09:06 [email or web address] nausea No 03/21/24 09:06 MALIHA Vomiting No 03/21/24 09:06 MALIHA Anesthesia Postop Eval I: Fluid Summary Crystalloid volume administer 1,000 03/21/24 09:06 MALIHA (ml) Colloids volume administered ( ml) Blood Product volume administered (ml) Total IV fluid infused 1,000 03/21/24 09:06 MALIHA Anesthesia Postop Eval I: Summary Notes Anesthesia Complication No 03/21/24 09:06 MALIHA Anesthesia Complication Comment: Post-operative progress note Anesthesia: Postop Eval II Evaluation Mental status: Awake Pain Level: 0 nausea: No Vomiting: No
[2024-03-21 10:20] LABS: Bedside Glucose 247 mg/dL (74-106)
== END 2024-03-21 11:22 | disposition home or self-care (01) ==
LOC: SDC 06:04 → AC 06:06
PROVIDERS: Referring Provider Plastic Surgery; Visit Provider Plastic Surgery
PROC: (CPT 15822; principal; 2024-03-21 07:20)
DX: H02.831 Dermatochalasis of right upper eyelid (principal); Z79.4 Long term (current) use of insulin; E11.9 Type 2 diabetes mellitus without complications; H02.834 Dermatochalasis of left upper eyelid; H53.40 Unspecified visual field defects; I25.10 Atherosclerotic heart disease of native coronary artery without angina pectoris; I10 Essential (primary) hypertension; E78.00 Pure hypercholesterolemia, unspecified; Z79.84 Long term (current) use of oral hypoglycemic drugs; Z79.899 Other long term (current) drug therapy
CPT/HCPCS: 15822; 00103; J7120; 82962; J2405

== ENCOUNTER → 2024-05-22 | Outpatient (CLI) | payer MEDICARE, SELFPAY ==
[2024-05-22 16:27] LABS: PSA,Total - Annual Screen 0.89 ng/mL (0.00-4.00)
== END | disposition home or self-care (01) ==
LOC: LAB 15:22
PROVIDERS: Referring Provider Nurse Practitioner; Visit Provider Nurse Practitioner
DX: Z12.5 Encounter for screening for malignant neoplasm of prostate (principal)
CPT/HCPCS: 36415; 84153; G0103